=== PATIENT | female | born 1940 | race Hispanic/Latino ===

== ENCOUNTER 2023-09-08 15:51 | Observation (INO) | payer MEDICARE ==
[~2023-09-08] VITALS: Ht 160 cm; Wt 89.5 kg
[2023-09-08] VITALS (8 sets, daily range): BP systolic 154–195; BP diastolic 50–98
--- NOTE | 2023-09-08 15:52 | NUR ---
PT BROUGHT IN VIA EMS, PT RONI BACK TO ER ROOM 12
--- NOTE | 2023-09-08 15:55 | NUR ---
PT ORIENTED TO PERSON, PT NOT ABLE TO TELL US THE MONTH OR WHY SHE IS HERE PER EMS PT HAS HAD CONFUSION FOR THE PAST WEEK THAT HAS BEEN WORSE SINCE YESTERDAY, AT BEDSIDE, PT'S DAUGHTER ENROUTE TO THE HOSPITAL AT THIS TIME
[2023-09-08 16:30] LABS: BASO% 0.3 % (0-3); EOS% 0.1 % (0-8); HEMOGLOBIN 11.4 g/dl (12.0-16.0); IMMATURE GRANULOCYTES 0.2 % (0.0-5.0); LYMPH% 14.7 % (15-41); MEAN CELL VOLUME 89.9 fL CALC (80.0-100.0); MEAN CORPUSCULAR HGB 31.1 pG CALC (26.0-32.0); MEAN CORPUSCULAR HGB CONC 34.5 g/dL CAL (32.0-36.0); MONO% 4.3 % (2-13); NEUT# 11.79 thou/uL (2.00-7.15); NEUT% 80.4 % (42-76); RED BLOOD COUNT 3.67 mill/uL (4.20-5.60); RED CELL DISTRI WIDTH 11.6 % (11.5-15.5)
[2023-09-08] MEDS ORDERED: SODIUM CHLORIDE 0.9% 1,000 ML IV ONE (16:45)
[2023-09-08] MEDS ORDERED: ATORVASTATIN CA20 MG PO (16:47)
[2023-09-08] MEDS ORDERED: LEVOCETIRIZINE D5 MG PO (16:47)
[2023-09-08] MEDS ORDERED: CARVEDILOL25 MG PO (16:48)
[2023-09-08] MEDS ORDERED: LOSARTAN POTAS100 MG PO (16:49)
[2023-09-08] MEDS ORDERED: FLEXERIL5 M1 PO (16:49)
[2023-09-08] MEDS ORDERED: GLIPIZIDE10 M3 PO (16:50)
[2023-09-08] MEDS ORDERED: TIZANIDINE HYDRO4 M1 PO (16:51)
[2023-09-08 16:57] LABS: INTERNATIONAL NORMALIZED RATIO 1.2 RATIO (0.7-1.3); PROTHROMBIN TIME 11.5 SECONDS (9.0-12.5)
[2023-09-08 16:58] LABS: ALBUMIN 4.2 g/dL (3.2-5.0); BILIRUBIN, TOTAL 0.6 mg/dL (0.02-1.3); CREATININE 4.9 mg/dL (0.5-1.0); POTASSIUM 4.8 mmol/l (3.5-5.1); TOTAL PROTEIN 7.6 g/dL (6.3-8.2)
[2023-09-08] MEDS ORDERED: INSULIN REGULAR (HUMAN) 100 UNIT/ML INJ IV ONE (17:35)
--- NOTE | 2023-09-08 17:41 | NUR ---
PROVIDER AT BEDSIDE, RECTAL TEMP TAKEN, PT MEDICATED PER EMAR, PT RESTING IN BED, DAUGHT AT BED SIDE
[2023-09-08] MEDS ORDERED: cefTRIAXone SODIUM 2 GM in SODIUM CHLORIDE 0.9% 100 ML IV ONE (17:50)
--- NOTE | 2023-09-08 18:30 | NUR ---
REASSESSMENT COMPLETED, PT HAS NO CHANGE, PT STILL ORIENTED TO PERSON, PT NOT ANSEWERING QUESTIONS, PT RESPONDS WHEN YOU CALL HER NAME, PT SPEAKING TO DAUGHTER OFF AND ON ABOUT THINGS GOING ON IN THE ROOM
[2023-09-08] MEDS ORDERED: ASPIRIN 81 MG/TAB PO ONE (19:00)
--- NOTE | 2023-09-08 19:50 | NUR ---
PT MEDICATED PER EMAR, STRAIGHT CATH COMPLETED, URINE SAMPLE COLLECTED, PT BOOSTED IN BED AND REPOSITIONED, PT RESTING IN BED, DAUGHTER AT BEDSIDE, CALL LIGHT WITHIN REACH, DAUGHTER UPDATED ON THE PLAN OF CARE
[2023-09-08 20:19] LABS: URINE BILIRUBIN - DIPSTICK Negative (NEGATIVE); URINE BLOOD DIPSTICK Moderate (NEGATIVE); URINE COLOR Yellow; URINE GLUCOSE - DIPSTICK >=1000 mg/dL (NEGATIVE); URINE KETONE Negative (NEGATIVE); URINE LEUK ESTERASE Trace (NEGATIVE); URINE NITRITE - DIPSTICK Negative (Negative); URINE PH 5.5 (4.5-8.0); URINE PROTEIN - DIPSTICK 100 mg/dL (NEG-TRACE); URINE SPECIFIC GRAVITY 1.015; URINE UROBILINOGEN - DIPSTICK 0.2 E.U./dL (0.2)
[2023-09-08 20:20] LABS: URINE SQUAMOUS EPITHELIAL CELL FEW EPI/hpf (0-FEW)
[2023-09-08] MEDS ORDERED: ACETAMINOPHEN 325 MG/TAB PO PRN (21:10)
[2023-09-08] MEDS ORDERED: MAGNESIUM HYDROXIDE 30 ML UDC PO PRN (21:10)
[2023-09-08] MEDS ORDERED: SODIUM CHLORIDE 0.9% 1,000 ML IV PRN (21:10)
[2023-09-08] MEDS ORDERED: hydrALAZINE HCL 20 MG/ML VIAL(1 ML) IV PRN (21:20)
[2023-09-08] MEDS ORDERED: CLARIFY DOSE PO PRN (21:55)
--- NOTE | 2023-09-08 22:30 | NUR ---
REPORT RECEIVED FROM Lynda BORREGO RN, CARE OF PT ASSUMED AT THIS TIME.
--- NOTE | 2023-09-08 22:40 | NUR ---
CHANGE OF SHIFE REPORT GIVEN TO EVAN, CARE RELINQUISHED AT THIS TIME
[2023-09-09] VITALS (14 sets, daily range): BP systolic 128–218; BP diastolic 56–131
--- NOTE | 2023-09-09 | NUR ---
PT SEEMS TO BE RESTING COMFORTABLY, PT'S DAUGHTER SITTING AT BEDSIDE REPORTS SHE SEEMS TO BE MORE ALERT AND ORIENTED.
--- NOTE | 2023-09-09 02:15 | NUR ---
PT NOTED TO BE INCONTINET OF URINE, INCONTINENCE CARE PROVIDED.
--- NOTE | 2023-09-09 02:30 | NUR ---
PT UP TO ROOM 260, PT ENDORSED TO Lynda BOYD RN. CARE OF PT SURRENDERED.
[2023-09-09] MEDS ORDERED: amLODIPine BESYLATE 5 MG/TAB PO SCH (03:05)
[2023-09-09] MEDS ORDERED: SODIUM CHLORIDE 0.9% 1,000 ML IV SCH (03:10)
--- NOTE | 2023-09-09 04:44 | NUR ---
RECEIVED REPORT FROM NURSE DANIELLE VELAZCO TRANSPORTED VIA STRECHER, PATIENT SCOOTED TO THE BED FROM STRETCHER, ARRIVED TO FLOOR AT [id number] ALERT ONLY TO NAME AND BIRTHDAY, JAPANESE SPEAKING ONLY, NIH 3, PATIENT ACCOMPANIED BY DAUGHTER, KALEY IS FROM [place] VISITING FAMILY HERE ARRIVED LAST NOVEMEB, PATIENT NOTED REDNESS ON LEFT EYEBROW AMD ABRASION ON LEFT THIGH, PATIENT ON TELEMETRY, PASS SWALLOW TEST, NIH 3, BED ALARM IN PLACED, CALL LIGHT IN REACH.
[2023-09-09] MEDS ORDERED: Heparin SODIUM (Porcine) 5,000 UNITS/ML SDV SC SCH (06:00)
[2023-09-09] MEDS ORDERED: INSULIN LISPRO 100 UNITS/ML ML SC SCH (07:00)
--- NOTE | 2023-09-09 07:00 | NUR ---
BEDSIDE REPORT RECIEVED
--- NOTE | 2023-09-09 07:44 | NUR ---
PT RESTING IN SEMI FOWLERS POSITION. PT A/OX2. DAUGHTER AT BEDSIDE TO ASSIST WITH TRANSLATION. RESPIRATIONS EVEN AND UNLABORED ON ROOM AIR. LUNG SOUNDS CLEAR. HEART RHYTHM NORMAL WITH TELE IN PLACE. BOWEL SOUNDS ACTIVE. #20G RAC INFUSING WITH IVF PER ORDER. SKIN INTACT. 1+ EDEMA NOTED. JANETH HOSE IN PLACE. PUREWHICK IN PLACE, 450 CLEAR YELLOW URINE NOTED. PT DENIES OF ANY PAINS. PT ORIENTED TO ROOM ADN CALL LIGHT SYSTEM. ALL SAFETY PRECAUTIONS ARE IN PLACE WITH CALL LIGHT IN REACH. BED ALARM ACTIVE.
[2023-09-09 09:10] LABS: BASO% 0.5 % (0-3); EOS% 2.2 % (0-8); HEMATOCRIT 32.5 % (37.0-47.0); IMMATURE GRANULOCYTES 0.5 % (0.0-5.0); LYMPH% 20.2 % (15-41); MEAN CELL VOLUME 91.5 fL CALC (80.0-100.0); MEAN CORPUSCULAR HGB CONC 33.8 g/dL CAL (32.0-36.0); MONO% 8.5 % (2-13); NEUT# 8.83 thou/uL (2.00-7.15); NEUT% 68.1 % (42-76); RED BLOOD COUNT 3.55 mill/uL (4.20-5.60); RED CELL DISTRI WIDTH 11.7 % (11.5-15.5)
[2023-09-09 09:24] LABS: ALBUMIN 3.5 g/dL (3.2-5.0); CREATININE 4.5 mg/dL (0.5-1.0); POTASSIUM 4.3 mmol/l (3.5-5.1); TOTAL PROTEIN 6.1 g/dL (6.3-8.2)
[2023-09-09 09:30] LABS: BILIRUBIN, TOTAL 0.3 mg/dL (0.02-1.3)
--- NOTE | 2023-09-09 09:32 | NUR ---
BREWERY PUMPER INFORMED OF MAG RESULTING IN 1.0. BRIDGETT SORTO INFORMED.
--- NOTE | 2023-09-09 09:49 | NUR ---
NEURO CONSULT COMPLETED AT THIS TIME.
[2023-09-09] MEDS ORDERED: MAGNESIUM SULFATE HEPTAHYDRATE 50 ML IV SCH (11:00)
[2023-09-09] MEDS ORDERED: ALPRAZolam 0.25 MG PO PRN (11:05)
--- NOTE | 2023-09-09 12:33 | NUR ---
PT RESTING IN SEMI FOWLERS POSITION. RESPIRATIONS EVEN AND UNLABORED ON ROOM AIR. TELE MONITORING IN PLACE. IV PATENT. ELEVATED BP, WILL REASSESS. PT DENIES OF ANY NEEDS. ALL SAFETY PRECAUTIONS ARE IN PLACE WITH CALL LIGHT IN REACH
--- NOTE | 2023-09-09 14:16 | NUR ---
APRESOLINE ADMINISTERED FOR BP. PT TOLERATED WELL.
--- NOTE | 2023-09-09 15:07 | NUR ---
PT ARRIVED TO [facility] ROOM 263. PT A/OX3. RESPIRATIONS EVEN AND UNLABORED ON ROOM AIR. LUNG SOUNDS CLEAR. PT REPORTS PRODUCTIVE COUGH WITH FOAMY YELLOW SPUTUM. HEART RHYTHM NORMAL WITH TELE #[address]. BOWEL SOUNDS ACTIVE, LBM 09/08/23. #20G LFA PATENT. IVF STARTED PER ORDER. SKIN INTACT. JANETH HOSE APPLIED. PT C/O OF HEADACHE AND 4/10 CHEST PAIN. TYLENOL ADMINISTERED FOR HEADACHE. LATEX ALLERGY NOTED. PT ORIENTED TO ROOM AND CALL LIGHT SYSTEM. SNAACK PROVIDED DUE TO NOT EATING LUNCH. PT DENIES OF ANY ADDITIONAL NEEDS. ALL SAFETY PRECAUTIONS ARE IN PLACE WITH CALL LIGHT IN REACH.
--- NOTE | 2023-09-09 16:58 | NUR ---
BP REASSESSED AFTER PT WAS ABLE TO RELAX AND NOT TALK NDURING BP CHECK. VSS. TELE MONITORING IN PLACE. IV NOTED. PT KD OF ANY NEEDS. ALL SAFETY PRECAUTIONS ARE IN PLACE WITH CALL LIGHT IN REACH. BED ALARM ACTIVE. DAUGHTER REMAINS AT BEDSIDE.
--- NOTE | 2023-09-09 20:00 | NUR ---
RECEIVED REPORT FROM NURSE CHAI. PATIENT CHINESE SPEAKING ON;Y, DAUGHTER IN ROOM, DAUGHTER STATED HER MOM IS MORE COHERENT, AND IS MAKING MORE SENSE, PATIENT IV ON RAC G 22 NS @ 150CC/HR INFUSING WELL, ON TELEMETRY SR 86, ACTIVE BOWEL SOUNDS LBM 2/6, PATIENT ON PUREWICK DRAINING CLEAR YELLOW URINE NIH 0, CALL LIGHT IN REACH.
--- NOTE | 2023-09-09 21:00 | NUR ---
KALEY STATED C/O HEADAHE AND AND HAS AUDIBLE WHEEZING, PATIENT REPOSITIONED, HEAD ELEVATED, DAUGHTER STATED THAT HER MOM HAS HX OF ASTHMA AND WAS ON [place]HALER IN [place] TAKES 2 PUFF Q4 NEEDED, PHOTOGRAPHER NEWS MADE AWARE. AND ORDERED BREATHING TREATMENT AND DECRASE IV RATE TOP 20CC/HR.
[2023-09-09] MEDS ORDERED: IPRATROPIUM-Albuterol 0.5MG-2.5MG/3 ML NEB PRN (21:50)
--- NOTE | 2023-09-09 23:58 | NUR ---
PATIENT STATED FEELS BETTER, EXCEPT FOR HER FOREHEAD HURTING
[2023-09-10 03:57] VITALS: BP 123/63
--- NOTE | 2023-09-10 04:36 | NUR ---
PATINET RESTING IN BED, NOT IN DISTRESS, BREATHING EVEN UNLABORED CALL LIGHT IN REACH.
--- NOTE | 2023-09-10 06:51 | NUR ---
LARGE INCONTINENCE,PERINEAL CARE DONE.
[2023-09-10 07:10] VITALS: BP 158/67
[2023-09-10 07:13] LABS: BASO% 0.3 % (0-3); EOS% 2.7 % (0-8); HEMATOCRIT 34.1 % (37.0-47.0); HEMOGLOBIN 11.7 g/dl (12.0-16.0); IMMATURE GRANULOCYTES 0.3 % (0.0-5.0); LYMPH% 17.4 % (15-41); MEAN CELL VOLUME 91.7 fL CALC (80.0-100.0); MEAN CORPUSCULAR HGB 31.5 pG CALC (26.0-32.0); MEAN CORPUSCULAR HGB CONC 34.3 g/dL CAL (32.0-36.0); MONO% 8.6 % (2-13); NEUT# 9.84 thou/uL (2.00-7.15); NEUT% 70.7 % (42-76); RED BLOOD COUNT 3.72 mill/uL (4.20-5.60); RED CELL DISTRI WIDTH 11.8 % (11.5-15.5)
[2023-09-10 07:20] LABS: ALBUMIN 3.3 g/dL (3.2-5.0); BILIRUBIN, TOTAL 0.3 mg/dL (0.02-1.3); CREATININE 4.4 mg/dL (0.5-1.0); POTASSIUM 4.6 mmol/l (3.5-5.1)
[2023-09-10 07:26] LABS: MAGNESIUM 1.6 mg/dL (1.6-2.3)
[2023-09-10 10:29] VITALS: BP 171/68
--- NOTE | 2023-09-10 11:13 | NUR ---
Bedside shift report completed. No c/o voiced. Daughter in room. Call light in reach.
--- NOTE | 2023-09-10 11:14 | NUR ---
[facility]
--- NOTE | 2023-09-10 11:49 | NUR ---
S: JOHANNA MARRUFO is a 83 F who presents with pneumonia. She has a history of hypertension,alcohol abuse and tobacco abuse . All medications in patient's chart were reviewed. O: VS: BP: 116/78 bpm, P: 121 bpm, RR: 22 bpm, T: 98.2 F W: 70 kg, HT: 65 in, Scr: 1.2 mg/dL, CrCl: 59.1 ml/min A: Preliminary blood cultures show no growth after 24 hours. Body Fluid culture pending. P: Patient is on cefepime 2 gm IV Q12H and azithromycin 500 mg IV Q24H. Vancomycin ordered for pharmacy to dose. Start vancomycin 750 mg IV Q12H. Vancomycin trough will be drawn before the dose on 09/11/23 @0930. Vancomycin goal trough is between 15-20 mcg/ml. Pharmacy will follow and or advise on antibiotics use as needed.
[2023-09-10] MEDS ORDERED: GLIPIZIDE10 M3 PO (13:27)
[2023-09-10] MEDS ORDERED: PLAVIX75 MG PO (13:28)
[2023-09-10] MEDS ORDERED: SINGULAIR10 MG PO (13:30)
[2023-09-10] MEDS ORDERED: SYMBICORT1 AE1 IN (13:31)
--- NOTE | 2023-09-10 14:42 | NUR ---
Discharge instructions given. Patient verbalizes understanding of same. Discharged in stable condition via Wheelchair to Home with family. All belongings sent with pt. IV site discontinued, cath intact. No edema , no redness, voices no discomfort.
== END 2023-09-10 14:13 | disposition home or self-care (01) ==
LOC: ED 15:51 → ED-I 18:25 → ED 22:52 → MS2 22:53 → EDBD 22:53 → MS2 09-10 09:19
PROVIDERS: Family Medicine; Nurse Practitioner Family; ADMIT Student in an Organized Health Care Education/Training Program; ATTEND Student in an Organized Health Care Education/Training Program
DX: R41.0 Disorientation, unspecified (principal); N17.9 Acute kidney failure, unspecified; E86.0 Dehydration; E11.65 Type 2 diabetes mellitus with hyperglycemia; I12.0 Hypertensive chronic kidney disease with stage 5 chronic kidney disease or end stage renal disease; E11.22 Type 2 diabetes mellitus with diabetic chronic kidney disease; N18.5 Chronic kidney disease, stage 5; G31.9 Degenerative disease of nervous system, unspecified; E78.5 Hyperlipidemia, unspecified; E83.42 Hypomagnesemia; S09.90XA Unspecified injury of head, initial encounter; W19.XXXA Unspecified fall, initial encounter; Y92.002 Bathroom of unspecified non-institutional (private) residence as the place of occurrence of the external cause; T38.3X6A Underdosing of insulin and oral hypoglycemic [antidiabetic] drugs, initial encounter; Z91.128 Patient's intentional underdosing of medication regimen for other reason; Z79.84 Long term (current) use of oral hypoglycemic drugs; Z95.1 Presence of aortocoronary bypass graft; Z95.5 Presence of coronary angioplasty implant and graft; Z20.822 Contact with and (suspected) exposure to COVID-19
CPT/HCPCS: J3475